=== PATIENT | male | born 1990 | race Hispanic/Latino ===

== ENCOUNTER 2018-02-17 20:13 | Emergency (ER) | payer BC ==
[2018-02-17 20:34] VITALS: BP 147/70; PULSE 70; RESP 18; TEMP 98.2; O2SAT 99
[2018-02-17 21:07] LABS: ABG ALLEN TEST YES; ARTERIAL BLOOD GAS HCO3 26.7 mmol/L (21-28); ARTERIAL BLOOD GAS HEMOGLOBIN 14.7 g/dL (11.7-17.4); ARTERIAL BLOOD GAS O2 CAPACITY 19.9 mL/dL (16-24); ARTERIAL BLOOD GAS O2 SAT 100.7 % (95-98); ARTERIAL BLOOD GAS PCO2 39 mm/Hg (35-45); ARTERIAL BLOOD GAS PH 7.44 (7.35-7.45); ARTERIAL BLOOD GAS PO2 97 mm/Hg (80-100); ARTERIAL BLOOD GAS TCO2 27.7 mmol/L (22-28)
--- NOTE | 2018-02-17 21:19 | ED PDOC ---
HPI: General Adult Time Seen by Provider: 02/17/18 20:39 Chief Complaint (Nursing): Chemical Exposure Chief Complaint (Provider): Light Headedness History Per: Patient History/Exam Limitations: no limitations Onset/Duration Of Symptoms: Hrs Current Symptoms Are (Timing): Still Present Additional Complaint(s): 27 year old male presents to the ER for an evaluation of light-headedness and upper extremity tingling and numbness. Patient came home at 6:30pm and noticed the gas burner was turn on. He was in the apartment for 15-20 minutes and felt shortness of breath. Patient went out for a work-out and then felt light- headedness. Denies nausea, vomiting or loss of consciousness. Past Medical History Reviewed: Historical Data, Nursing Documentation, Vital Signs Vital Signs: Last Vital Signs Temp 98.2 F 02/17/18 20:30 Pulse 70 02/17/18 20:30 Resp 18 02/17/18 20:30 BP 147/70 02/17/18 20:30 Pulse Ox 99 02/17/18 20:30 - Medical History PMH: No Chronic Diseases - Family History Family History: States: Unknown Family Hx - Social History Current smoker - smoking cessation education provided: No Alcohol: Social Drugs: Denies - Allergies Allergies/Adverse Reactions: Allergies Allergy/AdvReac Type Severity Reaction Status Date / Time No Known Allergies Allergy Verified 02/17/18 20:36 Review of Systems ROS Statement: Except As Marked, All Systems Reviewed And Found Negative Respiratory: Positive for: Shortness of Breath Gastrointestinal: Negative for: Nausea, Vomiting Neurological: Positive for: Numbness, Other (light headedness) Physical Exam - Reviewed Nursing Documentation Reviewed: Yes Vital Signs Reviewed: Yes - Physical Exam Appears: Positive for: Non-toxic, No Acute Distress Head Exam: Positive for: ATRAUMATIC, NORMAL INSPECTION, NORMOCEPHALIC Skin: Positive for: Normal Color, Warm, Dry. Negative for: Rash Eye Exam: Positive for: Normal appearance, EOMI, PERRL ENT: Positive for: Normal ENT Inspection Cardiovascular/Chest: Positive for: Regular Rate, Rhythm. Negative for: Murmur Respiratory: Positive for: Normal Breath Sounds. Negative for: Decreased Breath Sounds, Wheezing, Respiratory Distress Neurologic/Psych: Positive for: Alert, Oriented (x3). Negative for: Motor/Sensory Deficits - ECG O2 Sat by Pulse Oximetry: 99 (RA) Pulse Ox Interpretation: Normal Medical Decision Making Medical Decision Making: Time: 2099 Initial Plan: Arterial blood gas Reevaluation Carboxyhemoglobin 2.7 Case discussed with ED MD's Dr. Castanon and Corky, who agreed Pt stable for discharge at this time. Pt educated on results and demonstrated full understanding. Pt doing well on re- eval, reports no headache or dizziness, no nausea or vomiting. Pt reports he was anxious and now feels better Pt and his roommate report that they are contacting fire department prior to re- entering building and left to come to the ER and left all windows open Scribe Attestation: Documented by Ryan Lou, acting as a scribe for Estefania Gordon PA-C Provider Scribe Attestation: All medical record entries made by the Scribe were at my direction and personally dictated by me. I have reviewed the chart and agree that the record accurately reflects my personal performance of the history, physical exam, medical decision making, and the department course for this patient. I have also personally directed, reviewed, and agree with the discharge instructions and disposition. Disposition - Clinical Impression Clinical Impression: Carbon monoxide exposure - Patient ED Disposition Is Patient to be Admitted: No - Disposition Disposition: Routine/Home Disposition Time: 21:42 Condition: STABLE Instructions: Shortness of Breath (Dyspnea) Forms: [employer] ([place])
== END 2018-02-17 22:09 | disposition home or self-care (01) ==
LOC: H.ER 20:13
DX: T75.89XA Other specified effects of external causes, initial encounter (principal); X58.XXXA Exposure to other specified factors, initial encounter; Z77.098 Contact with and (suspected) exposure to other hazardous, chiefly nonmedicinal, chemicals

== ENCOUNTER 2018-05-09 02:47 | Emergency (ER) | payer BC ==
[2018-05-09 03:19] VITALS: BMI 25.0
[2018-05-09 03:21] VITALS: RESP 18
[2018-05-09] MEDS ORDERED: Sodium Chloride 0.9% 1,000 ML IV STA (03:29)
--- NOTE | 2018-05-09 03:45 | ED PDOC ---
HPI: Abdomen Time Seen by Provider: 05/09/18 03:02 Chief Complaint (Nursing): Abdominal Pain Chief Complaint (Provider): Abdominal Pain History Per: Patient History/Exam Limitations: no limitations Onset/Duration Of Symptoms: Days (x1) Location Of Pain/Discomfort: Diffuse Quality Of Discomfort: Cramping Associated Symptoms: Vomiting, Diarrhea. denies: Other (Recent Travel) Additional Complaint(s): 27 years old male with no PMHx presents to ER for evaluation of diffused cramping abdominal pain associated with vomiting and diarrhea onset 6 pm yesterday. Patient reports 6 episodes of non bloody, non bilious vomiting and 20 episodes of watery, non bloody diarrhea. He denies recent travel. PMD: None provided Past Medical History Reviewed: Historical Data, Nursing Documentation, Vital Signs Vital Signs: Last Vital Signs Temp 98.7 F 05/09/18 03:09 Pulse 111 H 05/09/18 03:09 Resp 18 05/09/18 03:09 BP 136/74 05/09/18 03:09 Pulse Ox 100 05/09/18 03:09 - Medical History PMH: No Chronic Diseases - Surgical History Surgical History: Tonsillectomy Other surgeries: Left Hand Surgery - Family History Family History: States: Unknown Family Hx - Social History Current smoker - smoking cessation education provided: No Alcohol: None Drugs: Denies - Home Medications Home Medications: Ambulatory Orders Medication Instructions Recorded Dicyclomine [Bentyl] 20 mg PO Q12 PRN #20 tab 05/09/18 Ondansetron ODT [Zofran ODT] 4 mg PO Q6 PRN #8 odt 05/09/18 - Allergies Allergies/Adverse Reactions: Allergies Allergy/AdvReac Type Severity Reaction Status Date / Time No Known Allergies Allergy Verified 05/09/18 03:19 Review of Systems ROS Statement: Except As Marked, All Systems Reviewed And Found Negative Gastrointestinal: Positive for: Vomiting, Abdominal Pain, Diarrhea Physical Exam - Reviewed Nursing Documentation Reviewed: Yes Vital Signs Reviewed: Yes - Physical Exam Appears: Positive for: Well, No Acute Distress Head Exam: Positive for: ATRAUMATIC, NORMOCEPHALIC Skin: Positive for: Normal Color, Warm, Dry Eye Exam: Positive for: Normal appearance, EOMI, PERRL ENT: Positive for: Other (Dry mucous membrane) Neck: Positive for: Normal, Painless ROM, Supple Cardiovascular/Chest: Positive for: Regular Rate, Rhythm, Tachycardia. Negative for: Murmur Respiratory: Positive for: Normal Breath Sounds. Negative for: Wheezing Gastrointestinal/Abdominal: Positive for: Tenderness (mild epigastric) Back: Positive for: Normal Inspection. Negative for: L CVA Tenderness, R CVA Tenderness Extremity: Positive for: Normal ROM. Negative for: Pedal Edema, Swelling Neurologic/Psych: Positive for: Alert, Oriented (x3) - Laboratory Results Result Diagrams: 05/09/18 03:53 05/09/18 03:53 - ECG O2 Sat by Pulse Oximetry: 100 (RA) Pulse Ox Interpretation: Normal Medical Decision Making Medical Decision Making: Time: 328 Initial Impression: 27 years old male with acute gastroenteritis Initial Plan: --CMP --Lipase --Urine dipstick --CBC --Zofran 4 mg IV --Bentyl 20 mg PO --Influenza A B 0528 Labs reviewed and show no clinically significant abnormality. Patient reports improvement in symptoms, stable for discharge. Diagnosis gastroenteritis. Scribe Attestation: Documented by Garima Mora, acting as a scribe for Bismark Fried MD. Provider Scribe Attestation: All medical record entries made by the Scribe were at my direction and personally dictated by me. I have reviewed the chart and agree that the record accurately reflects my personal performance of the history, physical exam, medical decision making, and the department course for this patient. I have also personally directed, reviewed, and agree with the discharge instructions and disposition. Disposition - Clinical Impression Clinical Impression: Gastroenteritis - Patient ED Disposition Is Patient to be Admitted: No - Disposition Disposition: Routine/Home Disposition Time: : Condition: STABLE Prescriptions: Dicyclomine [Bentyl] 20 mg PO Q12 PRN #20 tab PRN Reason: abdominal pain/diarrhea Ondansetron ODT [Zofran ODT] 4 mg PO Q6 PRN #8 odt PRN Reason: Nausea/Vomiting Instructions: Gastroenteritis (ED) Forms: [employer] (Bengali), [facility] ED School/Work Excuse
[2018-05-09 04:01] LABS: BASO % 0.2 % (0.0-2.0); EOS % 0.1 % (0.0-4.0); HEMOGLOBIN 16.7 g/dL (12.0-18.0); LYMPH # 0.4 K/uL (1.0-4.3); LYMPH % 3.5 % (20.0-40.0); MEAN CORPUSCULAR HEMOGLOBIN 30.9 pg (27.0-31.0); MEAN CORPUSCULAR HGB CONC 34.8 g/dL (33.0-37.0); MEAN PLATELET VOLUME 8.4 fl (7.2-11.7); MONO # 0.6 K/uL (0.0-0.8); MONO % 5.9 % (0.0-10.0); NEUT # 9.4 K/uL (1.8-7.0); NEUT % 90.3 % (50.0-75.0); NRBC % 0.1 % (0.0-0.0); PLATELET COUNT 282 K/uL (130-400); RED CELL DISTRIBUTION WIDTH 12.6 % (11.5-14.5); WHITE BLOOD COUNT 10.4 K/uL (4.8-10.8)
[2018-05-09 04:09] LABS: ALB/GLOB RATIO 1.4 (1.0-2.1); ALBUMIN 5.4 g/dL (3.5-5.0); ALT/SGPT 29 U/L (21-72); AST/SGOT 33 U/L (17-59); BLOOD UREA NITROGEN 15 mg/dl (9-20); CALCIUM 10.5 mg/dL (8.4-10.2); GFR NON-AFRICAN AMERICAN > 60; LIPASE 35 U/L (23-300)
[2018-05-09 04:59] LABS: BANDS 3 % (0-2); LYMPHOCYTE 5 % (20-50); MONOCYTE 8 % (0-10); NEUTROPHIL 84 % (42-75); PLATELET ESTIMATE NORMAL (NORMAL); TOTAL CELLS COUNTED 100
[2018-05-09 05:32] VITALS: BP 113/65; PULSE 100; TEMP 99.5
[2018-05-09 05:40] VITALS: O2SAT 100
== END 2018-05-09 05:28 | disposition home or self-care (01) ==
LOC: H.ER 02:47
DX: K52.9 Noninfective gastroenteritis and colitis, unspecified (principal)
CPT/HCPCS: 80053; 83690; 85025; 87804; 96360; 99283; J2405; J7030